=== PATIENT | female | born 1940 | race Caucasian/White ===

== ENCOUNTER → 2020-03-13 | Outpatient (CLI) | payer MEDICARE, BC ==
[2020-01-12 11:00] VITALS: BP 131/60
[~2020-03-13] MED LIST: ASPI-630 PO; CAPT50TA2 PO; CARV6.25 PO; ISOS30TA4 PO; PANT40TA77 PO; PIOG30TA41 PO
--- NOTE | 2020-03-13 17:47 | CARD ---
MR#: [id number] Date of Study: 03/13/2020 Ordering Physician: COLTON IRWIN, Referring Physician: COLTON IRWIN, Tech: APPROVED REPORT Reason for procedure: Syncope Details: After appropriate informed consent the left chest wall was prepped and draped in usual sterile fashio n. 20 mL of 1% lidocaine was instilled within the left fourth parasternal space. A subcutaneous vanessa karla was made after a 0.5 inches incision. A Biotron[employer] loop recorder with serial #[id number] was placed . Appropriate amplitudes were noted. The dressing was placed over the incision after Steri-Strips. Complications none <Conclusion> 1. Successful placement of a Biotronik loop recorder for evaluation of syncope. Signed by : Colton Irwin, Electronically Approved : 03/13/2020 17:46:47
== END | disposition home or self-care (01) ==
LOC: LINQ 09:00
PROVIDERS: ATTEND Internal Medicine Cardiovascular Disease
DX: R55 Syncope and collapse (principal); K21.9 Gastro-esophageal reflux disease without esophagitis; I12.9 Hypertensive chronic kidney disease with stage 1 through stage 4 chronic kidney disease, or unspecified chronic kidney disease; E11.22 Type 2 diabetes mellitus with diabetic chronic kidney disease; N18.4 Chronic kidney disease, stage 4 (severe); Z88.8 Allergy status to other drugs, medicaments and biological substances; Z79.82 Long term (current) use of aspirin; Z79.899 Other long term (current) drug therapy; Z79.84 Long term (current) use of oral hypoglycemic drugs; Z94.0 Kidney transplant status
CPT/HCPCS: 33285; C1764